=== PATIENT | female | born 1960 | race Caucasian/White ===

== ENCOUNTER 2018-01-16 11:39 | Emergency (ER) | payer BC ==
[2018-01-16] MEDS ORDERED: Ketorolac INJ* 30 MG/ML 1 ML VIAL IV ONE (12:10)
[2018-01-16] MEDS ORDERED: NS 0.9% 1000 ML* 1,000 ML IV ONE (12:10)
[2018-01-16 13:02] LABS: ABS Basophils 0 10^3/ul (0-0.2); ABS Eosinophils 0.1 10^3/ul (0-0.6); ABS Lymphocytes 1.7 10^3/ul (1.0-4.8); ABS Monocytes 0.3 10^3/ul (0-0.8); ABS Neutrophils 3.2 10^3/ul (1.5-7.7); ABS Nucleated RBC 0 10^3/ul; Eosinophil % 1.4 % (0-6); Hematocrit 36 % (35-47); Hemoglobin 12.3 g/dl (12.0-16.0); Lymphocyte % 31.8 % (25-47); Mean Corpuscular HGB Conc 34 g/dl (31-36); Mean Corpuscular Hemoglobin 33 pg (27-31); Mean Corpuscular Volume 97 fL (80-97); Mean Platelet Volume 8.9 um3 (7.4-10.4); Nucleated Red Blood Cells % 0; Platelet Count 190 10^3/ul (150-450); Red Blood Count 3.71 10^6/ul (4.00-5.40); Red Cell Distribution Width 13 % (10.5-15); White Blood Count 5.2 10^3/ul (3.5-10.8)
--- NOTE | 2018-01-16 13:02 | RAD ---
INDICATION: Headaches COMPARISON: September 17, 2011 TECHNIQUE: An AP seated portable view obtained at 1239 hours is submitted. FINDINGS: Bones/Soft Tissues: There are no acute bony findings. Cardiomediastinal: The cardiomediastinal silhouette is normal. Lungs: There are no infiltrates. Pleura: There are no pleural effusions. Other: None IMPRESSION: NO ACTIVE DISEASE.
[2018-01-16 13:22] LABS: Urine Appearance Clear; Urine Blood Negative (Negative); Urine Color Yellow; Urine Ketones Negative (Negative); Urine Protein Negative (Negative); Urine Urobilinogen Negative (Negative)
[2018-01-16 13:29] LABS: EGFR Non-African American 109.3 (>60)
[2018-01-16] MEDS ORDERED: oxyCODONE TAB* 5 MG TAB PO ONE (14:10)
[2018-01-16 14:27] VITALS: BP 132/76
--- NOTE | 2018-01-19 10:34 | ED ---
Arnaud Parsons Angela, scribed for Dg Kingsley MD on 01/16/18 at 1205 . Complex/Multi-Sys Presentation - HPI Summary HPI Summary: This pt is a 57 y/o female presenting to [facility] c/o generalized weakness and pain to extremities for the past 2.5 weeks. Pt additionally reports numbness and tingling in LE, headache, blue hands. She states her symptoms have been progressively worsening for the past couple of weeks. Denies chest pain, SOB, fever. She states she recently started Crestor (prescribed by Dr. Jang) for high cholesterol about 6 weeks ago. Pt notes her symptoms began 1 month after she started this medication. She called Dr. Jang today and advised her to come to the ED. PMHx includes dyslipidemia, COPD. Pt has chronic pain and takes medications for this. Pt has been referred to the pain clinic but has not seen them yet. She is a current tobacco smoker. - History Of Current Complaint Chief Complaint: EDGeneral Time Seen by Provider: 01/16/18 11:59 Hx Obtained From: Patient Onset/Duration: Lasting Weeks, Still Present Timing: Weeks Severity Currently: Moderate Location: Pain At: - head and extremities Aggravating Factor(s): nothing Alleviating Factor(s): nothing Associated Signs And Symptoms: Positive: Weakness, Headache, Other - POS: numbness and tingling in LE, blueish hands.. Negative: SOB, Chest Pain, Fever - Allergies/Home Medications Allergies/Adverse Reactions: Allergies Allergy/AdvReac Type Severity Reaction Status Date / Time Iodinated Contrast- Oral and AdvReac Severe Vomiting Verified 01/16/18 11:49 IV Dye Penicillins AdvReac Severe Vomiting Verified 01/16/18 11:49 codeine AdvReac Vomiting Verified 01/16/18 11:49 PMH/Surg Hx/FS Hx/Imm Hx Endocrine/Hematology History: Denies: Hx Diabetes Cardiovascular History: Reports: Hx Angina, Hx Hypercholesterolemia, Hx Hypertension, Hx Valvular Heart Disease - mitral valve prolapse Denies: Hx Coronary Artery Disease, Hx Myocardial Infarction Respiratory History: Reports: Hx Asthma, Hx Chronic Obstructive Pulmonary Disease (COPD) History: Reports: Other Problems/Disorders - left kidney infarct Neurological History: Reports: Other Neuro Impairments/Disorders - piriformis syndrome Psychiatric History: Reports: Hx Anxiety, Hx Depression Infectious Disease History: No Infectious Disease History: Denies: Traveled Outside the [place] in Last 30 Days - Family History Known Family History: Positive: Cardiac Disease - Mother: [place] at age 36, Hypertension - father, Diabetes - father Family History: Mother: breast CA. Father: CA - Social History Alcohol Use: Occasionally Substance Use Type: Reports: None Smoking Status (MU): Light Every Day Tobacco Smoker Type: Cigarettes Amount Used/How Often: 1 pack/week Length of Time of Smoking/Using Tobacco: 47 years Have You Smoked in the Last Year: Yes Review of Systems Negative: Fever Negative: Chest Pain Negative: Shortness Of Breath Musculoskeletal: Other - pain in all extremities Skin: Other - blue color in hands Positive: Headache, Weakness, Paresthesia, Numbness All Other Systems Reviewed And Are Negative: Yes Physical Exam - Summary Physical Exam Summary: VITAL SIGNS: Reviewed. GENERAL: Patient is a well-developed and nourished female who is lying comfortable in the stretcher. Patient is not in any acute respiratory distress. HEAD AND FACE: No signs of trauma. No ecchymosis, hematomas or skull depressions. No sinus tenderness. EYES: PERRLA, EOMI x 2, No injected conjunctiva, no nystagmus. EARS: Hearing grossly intact. Ear canals and tympanic membranes are within normal limits. MOUTH: Oropharynx within normal limits. NECK: Supple, trachea is midline, no adenopathy, no JVD, no carotid bruit, no c- spine tenderness, neck with full ROM. CHEST: Symmetric, no tenderness at palpation LUNGS: Clear to auscultation bilaterally. No wheezing or crackles. CVS: Regular rate and rhythm, S1 and S2 present, no murmurs or gallops appreciated. ABDOMEN: Soft, non-tender. No signs of distention. No rebound no guarding, and no masses palpated. Bowel sounds are normal. EXTREMITIES: FROM in all major joints, no edema, no cyanosis or clubbing. NEURO: Alert and oriented x 3. No acute neurological deficits. Speech is normal and follows commands. SKIN: Dry and warm Triage Information Reviewed: Yes Vital Signs On Initial Exam: Initial Vitals Temp Pulse Resp BP Pulse Ox 99.6 F 114 16 134/74 97 01/16/18 11:42 01/16/18 11:42 01/16/18 11:42 01/16/18 11:42 01/16/18 11:42 Vital Signs Reviewed: Yes Diagnostics - Vital Signs Vital Signs Temp Pulse Resp BP Pulse Ox 01/16/18 11:42 99.6 F 114 16 134/74 97 - Laboratory Lab Results: Lab Results 01/16/18 01/16/18 01/16/18 Range/Units 12:47 12:47 12:47 WBC 5.2 (3.5-10.8) 10^3/ul RBC 3.71 L (4.00-5.40) 10^6/ul Hgb 12.3 (12.0-16.0) g/dl Hct 36 (35-47) % MCV 97 (80-97) fL MCH 33 H (27-31) pg MCHC 34 (31-36) g/dl RDW 13 (10.5-15) % Plt Count 190 (150-450) 10^3/ul MPV 8.9 (7.4-10.4) um3 Neut % (Auto) 60.6 (38-83) % Lymph % (Auto) 31.8 (25-47) % [place] % (Auto) 5.5 (0-7) % Eos % (Auto) 1.4 (0-6) % Baso % (Auto) 0.7 (0-2) % Absolute Neuts (auto) 3.2 (1.5-7.7) 10^3/ul Absolute Lymphs (auto) 1.7 (1.0-4.8) 10^3/ul Absolute Monos (auto) 0.3 (0-0.8) 10^3/ul Absolute Eos (auto) 0.1 (0-0.6) 10^3/ul Absolute Basos (auto) 0 (0-0.2) 10^3/ul Absolute Nucleated RBC 0 10^3/ul Nucleated RBC % 0 Sodium 139 (135-145) mmol/L Potassium 3.9 (3.5-5.0) mmol/L Chloride 110 (101-111) mmol/L Carbon Dioxide 22 (22-32) mmol/L Anion Gap 7 (2-11) mmol/L BUN 10 (6-24) mg/dL Creatinine 0.57 (0.51-0.95) mg/dL Est GFR ( Amer) 140.6 (>60) Est GFR (Non-Af Amer) 109.3 (>60) BUN/Creatinine Ratio 17.5 (8-20) Glucose 99 (70-100) mg/dL Calcium 9.2 (8.6-10.3) mg/dL Magnesium 2.0 (1.9-2.7) mg/dL Total Bilirubin 0.30 (0.2-1.0) mg/dL AST 16 (13-39) U/L ALT 9 (7-52) U/L Alkaline Phosphatase 78 (34-104) U/L Total Creatine Kinase 55 (10-223) U/L Total Protein 6.5 (6.4-8.9) g/dL Albumin 3.9 (3.2-5.2) g/dL Globulin 2.6 (2-4) g/dL Albumin/Globulin Ratio 1.5 (1-3) TSH 1.59 (0.34-5.60) mcIU/mL Urine Color Yellow Urine Appearance Clear Urine pH 6.0 (5-9) Ur Specific [place] 1.010 (1.010-1.030) Urine Protein Negative (Negative) Urine Ketones Negative (Negative) Urine Blood Negative (Negative) Urine Nitrate Negative (Negative) Urine Bilirubin Negative (Negative) Urine Urobilinogen Negative (Negative) Ur Leukocyte Esterase Trace A (Negative) Urine WBC (Auto) Trace(0-5/hpf) (Absent) Urine RBC (Auto) 1+(3-5/hpf) A (Absent) Ur Squamous Epith Cells Present A (Absent) Urine Bacteria Absent (Absent) Urine Glucose Negative (Negative) Result Diagrams: 01/16/18 12:47 01/16/18 12:47 Lab Statement: Any lab studies that have been ordered have been reviewed, and results considered in the medical decision making process. - Radiology Chest XR Xray Interpretation: No Acute Changes - IMPRESSION: No active disease. Dr. Kingsley has reviewed this radiology report. Radiology Interpretation Completed By: Radiologist - EKG 13:12 Cardiac Rate: NL - at 71 bpm EKG Rhythm: Sinus Rhythm EKG Interpretation: No ST elevations Re-Evaluation - Re-Evaluation First Eval Re-Evaluation Time: 13:55 Change: Improved Comment: I reviewed the lab and imaging results with the pt. She will be discharged home with follow up from PCP. Complex Multi-Symp Course/Dx Assessment/Plan: Pt is a 57 y/o female, currently on Crestor for the past 6 weeks, who presents with generalized weakness and pain to extremities for the past 2.5 weeks. Pt additionally reports numbness and tingling in LE, headache, blue hands. She states her symptoms have been progressively worsening for the past couple of weeks. Denies chest pain, SOB, fever. Initially the patient was placed on a senior licensing manager, IV access was obtained, and the patient was started and an IV fluids. She was also given Toradol for the pain. Blood test results without any significant abnormality. Urinalysis is negative for UTI. EKG: Normal sinus rhythm at without any ST elevations. Chest x-ray impression : No acute Pulmonary disease. In the ED course the patient was feeling better. The patient was hydrated and she has no other symptoms. The patient thinks that the symptoms are secondary to the Crestor new medication. However she has been taken his medication for almost 6 weeks. Therefore she was recommended to follow with the primary care physician. I discussed all the findings and test results with the patient. Patient was instructed to return to the emergency room immediately if any of the symptoms return or worsens. Plan of care was discussed with the patient and understands and agrees. All questions were answered at patient satisfaction. There were no further complaints or concerns. Lung exam before discharge: CTA B/L. Good air exchange. No wheezing or crackles heard. CVS: S1 and S2 present. No murmurs appreciated. Patient is alert and oriented x 3. Patient is hemodynamically stable. Patient will be discharged home with follow up PCP in the next 2-3 days - Diagnoses Provider Diagnoses: Musculoskeletal pain, Muscle pain Discharge - Sign-Out/Discharge Documenting (check all that apply): Discharge/Admit/Transfer - Discharge - Discharge Plan Condition: Stable Disposition: HOME Patient Education Materials: Musculoskeletal Pain (ED) Referrals: Madalyn Gonsales [Primary Care Provider] - 3 Days Additional Instructions: Please follow up with your primary care provider. RETURN TO THE ED FOR ANY NEW OR WORSENING SYMPTOMS. - Billing Disposition and Condition Condition: STABLE Disposition: Home The documentation as recorded by the Arnaud gupta Angela accurately reflects the service I personally performed and the decisions made by me, Dg Kingsley MD.
== END 2018-01-16 14:25 | disposition home or self-care (01) ==
LOC: ED 11:39
DX: M79.1 Myalgia (principal); R20.0 Anesthesia of skin; R20.2 Paresthesia of skin; E78.5 Hyperlipidemia, unspecified; J44.9 Chronic obstructive pulmonary disease, unspecified; G89.29 Other chronic pain; F17.210 Nicotine dependence, cigarettes, uncomplicated; Z79.899 Other long term (current) drug therapy; Z82.49 Family history of ischemic heart disease and other diseases of the circulatory system; Z88.5 Allergy status to narcotic agent; Z88.0 Allergy status to penicillin; Z91.041 Radiographic dye allergy status; Z86.79 Personal history of other diseases of the circulatory system
CPT/HCPCS: 36415; 71045; 80053; 81003; 81015; 82550; 83735; 84443; 85025; 87086; 93005; 96374; 99282; A9270-GY; J1885

== ENCOUNTER 2018-01-18 18:46 | Emergency (ER) | payer BC ==
[2018-01-18] MEDS ORDERED: NS 0.9% 1000 ML* 1,000 ML IV ONE (19:26)
--- NOTE | 2018-01-18 20:08 | RAD ---
HISTORY: Chest pain COMPARISONS: January 16, 2018 VIEWS: 1: frontal portable view of the chest at 7:35 PM FINDINGS: LINES AND TUBES: None. CARDIOMEDIASTINAL SILHOUETTE: The cardiomediastinal silhouette is normal for portable technique. PLEURA: The costophrenic angles are sharp. No pleural abnormalities are noted. LUNG PARENCHYMA: The lungs are clear. ABDOMEN: The upper abdomen is clear. There is no subphrenic gas. BONES AND SOFT TISSUES: No bone or soft tissue abnormalities are noted. IMPRESSION: NO ACTIVE CARDIOPULMONARY DISEASE.
[2018-01-18 20:36] LABS: ABS Basophils 0 10^3/ul (0-0.2); ABS Eosinophils 0.2 10^3/ul (0-0.6); ABS Lymphocytes 2.5 10^3/ul (1.0-4.8); ABS Monocytes 0.4 10^3/ul (0-0.8); ABS Neutrophils 6.3 10^3/ul (1.5-7.7); ABS Nucleated RBC 0 10^3/ul; Eosinophil % 1.7 % (0-6); Hematocrit 32 % (35-47); Hemoglobin 11.1 g/dl (12.0-16.0); Lymphocyte % 26.1 % (25-47); Mean Corpuscular HGB Conc 35 g/dl (31-36); Mean Corpuscular Hemoglobin 34 pg (27-31); Mean Corpuscular Volume 98 fL (80-97); Mean Platelet Volume 8.7 um3 (7.4-10.4); Nucleated Red Blood Cells % 0; Platelet Count 176 10^3/ul (150-450); Red Blood Count 3.28 10^6/ul (4.00-5.40); Red Cell Distribution Width 13 % (10.5-15); White Blood Count 9.4 10^3/ul (3.5-10.8)
[2018-01-18 20:49] LABS: INR 0.96 (0.77-1.02)
[2018-01-18 20:59] LABS: EGFR Non-African American 93.6 (>60)
[2018-01-18] MEDS ORDERED: oxyCODONE TAB* 5 MG TAB PO ONE (21:44)
[2018-01-18 22:00] VITALS: BP 107/66
--- NOTE | 2018-01-18 23:45 | ED ---
Mis Parsons Gabriel, scribed for Bryant Zaldivar MD on 01/18/18 at 1917 . HPI Chest Pain - HPI Summary HPI Summary: This patient is a 58 year old F BIBA to [facility] c/o chest pain and chest pressure for the last two weeks. The patient rates the pain 6/10 in severity. Patient reports SOB, GORDON, and palpitations. Pt began taking crestor a month ago and believes this is contributing to her sx, she looked at side effects on the internet and stopped taking it 3 days ago. She states she has cyanotic bilateral hands, paresthesia in all 4 extremities, weakness, trouble ambulating , chills, tremors, and low grade fever. Patient denies tick bites. She expresses concern for her GORDON and states she cannot walk within her house or speaking without becoming very SOB. She states she has not seen her PCP for any of these issues but has an appointment with her bindery supervisor Dr. Jang this week. Today she reports being at the pharmacy when an employee suggested she come her because she may have endocarditis. Pt states she was told not to take NSAIDs by her bindery supervisor because her blood pressure. Hx of CRSD and took Percocet at 1725 and 325 [employer]. Everyday smoker. Takes Effexor and Klonopin daily. - History of Current Complaint Chief Complaint: EDChestPainROMI Time Seen by Provider: 01/18/18 19:11 Hx Obtained From: Patient Onset/Duration: Still Present Timing: Constant, Lasting Weeks Initial Severity: Moderate Current Severity: Moderate Pain Intensity: 6 Pain Scale Used: 0-10 Numeric Chest Pain Radiates: No Character: Pressure/Squeezing Associated Signs and Symptoms: Positive: Chest Pain, Weakness, Fever, Chills - Allergy/Home Medications Allergies/Adverse Reactions: Allergies Allergy/AdvReac Type Severity Reaction Status Date / Time Iodinated Contrast- Oral and AdvReac Severe Vomiting Verified 01/16/18 11:49 IV Dye Penicillins AdvReac Severe Vomiting Verified 01/16/18 11:49 codeine AdvReac Vomiting Verified 01/16/18 11:49 Home Medications: Home Medications Cyanocobalamin (Vitamin B-12) [Vitamin B-12] 1,000 mcg PO DAILY 01/18/18 [ History Confirmed 01/18/18] Rosuvastatin Calcium 5 mg PO DAILY 01/18/18 [History Confirmed 01/18/18] Topiramate 50 mg PO BID 01/18/18 [History Confirmed 01/18/18] PMH/Surg Hx/FS Hx/Imm Hx Endocrine/Hematology History: Denies: Hx Diabetes Cardiovascular History: Reports: Hx Angina, Hx Hypercholesterolemia, Hx Valvular Heart Disease Denies: Hx Coronary Artery Disease, Hx Hypertension, Hx Myocardial Infarction Respiratory History: Reports: Hx Asthma, Hx Chronic Obstructive Pulmonary Disease (COPD) GI History: Denies: Hx Crohn's Disease, Hx Diverticulosis - Immunization History Immunizations Up to Date: Yes Infectious Disease History: No Infectious Disease History: Denies: Traveled Outside the [place] in Last 30 Days - Family History Known Family History: Negative: Seizure Disorder, Blood Disorder - Social History Alcohol Use: Occasionally Substance Use Type: Reports: None Smoking Status (MU): Light Every Day Tobacco Smoker Type: Cigarettes Amount Used/How Often: 1 pack/week Length of Time of Smoking/Using Tobacco: 47 years Have You Smoked in the Last Year: Yes Review of Systems Positive: Fever, Chills, Other - tremors Positive: Chest Pain Positive: Shortness Of Breath, Other - GORDON Positive: Other - cyanotic bilateral hands Neurological: Other - trouble ambulating Positive: Weakness, Paresthesia All Other Systems Reviewed And Are Negative: Yes Physical Exam - Summary Physical Exam Summary: Appearance: Well appearing, no pain distress Skin: warm, dry, reflects adequate perfusion, no color changes in the hands or feet Head/face: normal Eyes: EOMI, JENNIFER ENT: normal Neck: supple, non-tender Respiratory: CTA, breath sounds present Cardiovascular: RRR, pulses symmetrical, no murmur Abdomen: non-tender, soft Bowel Sounds: present Musculoskeletal: normal, strength/ROM intact, there is no swelling in extremities Neuro: normal, sensory motor intact, A&Ox3 Triage Information Reviewed: Yes Vital Signs On Initial Exam: Initial Vitals Pulse Resp BP Pulse Ox 88 20 144/78 97 01/18/18 18:53 01/18/18 18:53 01/18/18 18:53 01/18/18 18:53 Vital Signs Reviewed: Yes Diagnostics - Vital Signs Vital Signs Temp Pulse Resp BP Pulse Ox 01/18/18 19:01 84 15 97 01/18/18 19:00 99.6 F 95 22 144/78 98 01/18/18 18:53 88 20 144/78 97 - Laboratory Lab Results: Lab Results 01/18/18 01/18/18 01/18/18 Range/Units 20:24 20:24 20:24 WBC 9.4 (3.5-10.8) 10^3/ul RBC 3.28 L (4.00-5.40) 10^6/ul Hgb 11.1 L (12.0-16.0) g/dl Hct 32 L (35-47) % MCV 98 H (80-97) fL MCH 34 H (27-31) pg MCHC 35 (31-36) g/dl RDW 13 (10.5-15) % Plt Count 176 (150-450) 10^3/ul MPV 8.7 (7.4-10.4) um3 Neut % (Auto) 67.1 (38-83) % Lymph % (Auto) 26.1 (25-47) % [place] % (Auto) 4.7 (0-7) % Eos % (Auto) 1.7 (0-6) % Baso % (Auto) 0.4 (0-2) % Absolute Neuts (auto) 6.3 (1.5-7.7) 10^3/ul Absolute Lymphs (auto) 2.5 (1.0-4.8) 10^3/ul Absolute Monos (auto) 0.4 (0-0.8) 10^3/ul Absolute Eos (auto) 0.2 (0-0.6) 10^3/ul Absolute Basos (auto) 0 (0-0.2) 10^3/ul Absolute Nucleated RBC 0 10^3/ul Nucleated RBC % 0 INR (Anticoag Therapy) 0.96 (0.77-1.02) D-Dimer, Quantitative < 200 (Less Than 230) ng/mL Sodium 139 (135-145) mmol/L Potassium 3.5 (3.5-5.0) mmol/L Chloride 112 H (101-111) mmol/L Carbon Dioxide 22 (22-32) mmol/L Anion Gap 5 (2-11) mmol/L BUN 13 (6-24) mg/dL Creatinine 0.65 (0.51-0.95) mg/dL Est GFR ( Amer) 120.4 (>60) Est GFR (Non-Af Amer) 93.6 (>60) BUN/Creatinine Ratio 20.0 (8-20) Glucose 95 (70-100) mg/dL Lactic Acid (0.5-2.0) mmol/L Calcium 8.7 (8.6-10.3) mg/dL Phosphorus 3.6 (2.5-5.0) mg/dL Magnesium 1.8 L (1.9-2.7) mg/dL Total Bilirubin 0.20 (0.2-1.0) mg/dL AST 16 (13-39) U/L ALT 12 (7-52) U/L Alkaline Phosphatase 89 (34-104) U/L Troponin I 0.00 (<0.04) ng/mL C-Reactive Protein 10.12 H (< 5.00) mg/L B-Natriuretic Peptide ( - 100) pg/mL Total Protein 5.7 L (6.4-8.9) g/dL Albumin 3.5 (3.2-5.2) g/dL Globulin 2.2 (2-4) g/dL Albumin/Globulin Ratio 1.6 (1-3) 01/18/18 01/18/18 01/18/18 Range/Units 20:24 20:24 20:24 WBC (3.5-10.8) 10^3/ul RBC (4.00-5.40) 10^6/ul Hgb (12.0-16.0) g/dl Hct (35-47) % MCV (80-97) fL MCH (27-31) pg MCHC (31-36) g/dl RDW (10.5-15) % Plt Count (150-450) 10^3/ul MPV (7.4-10.4) um3 Neut % (Auto) (38-83) % Lymph % (Auto) (25-47) % [place] % (Auto) (0-7) % Eos % (Auto) (0-6) % Baso % (Auto) (0-2) % Absolute Neuts (auto) (1.5-7.7) 10^3/ul Absolute Lymphs (auto) (1.0-4.8) 10^3/ul Absolute Monos (auto) (0-0.8) 10^3/ul Absolute Eos (auto) (0-0.6) 10^3/ul Absolute Basos (auto) (0-0.2) 10^3/ul Absolute Nucleated RBC 10^3/ul Nucleated RBC % INR (Anticoag Therapy) (0.77-1.02) D-Dimer, Quantitative (Less Than 230) ng/mL Sodium (135-145) mmol/L Potassium (3.5-5.0) mmol/L Chloride (101-111) mmol/L Carbon Dioxide (22-32) mmol/L Anion Gap (2-11) mmol/L BUN (6-24) mg/dL Creatinine (0.51-0.95) mg/dL Est GFR ( Amer) (>60) Est GFR (Non-Af Amer) (>60) BUN/Creatinine Ratio (8-20) Glucose (70-100) mg/dL Lactic Acid 0.5 (0.5-2.0) mmol/L Calcium (8.6-10.3) mg/dL Phosphorus (2.5-5.0) mg/dL Magnesium (1.9-2.7) mg/dL Total Bilirubin (0.2-1.0) mg/dL AST (13-39) U/L ALT (7-52) U/L Alkaline Phosphatase (34-104) U/L Troponin I 0.01 (<0.04) ng/mL C-Reactive Protein (< 5.00) mg/L B-Natriuretic Peptide 60 ( - 100) pg/mL Total Protein (6.4-8.9) g/dL Albumin (3.2-5.2) g/dL Globulin (2-4) g/dL Albumin/Globulin Ratio (1-3) Result Diagrams: 01/18/18 20:24 01/18/18 20:24 Lab Statement: Any lab studies that have been ordered have been reviewed, and results considered in the medical decision making process. - Radiology CXR Radiology Interpretation Completed By: Radiologist - NO ACTIVE CARDIOPULMONARY DISEASE. ED physician has reviewed this radiology report. - EKG 1800 Cardiac Rate: NL EKG Rhythm: Sinus Rhythm - at 81 BPM Ectopy: PVCs - one single EKG Interpretation: nml axis, nml intervals, nml ST Re-Evaluation - Re-Evaluation First Eval Re-Evaluation Time: 21:10 Change: Unchanged Comment: I discussed all test results and d/c with the patient. Chest Pain Course/Dx - Course Course Of Treatment: Patient with her second ER visit in 2 days. She has a history of complex regional pain syndrome and is complaining of pain diffusely as well as some shortness of breath and constant tightness in her chest. Troponin, d-dimer are not elevated. EKG is normal. She is very comfortable appearing. She took oxycodone just prior to coming. Her white blood cell count is not elevated and her CRP is only mildly elevated. She's been having these symptoms for weeks. Blood cultures were drawn as she is concerned about endocarditis. She has no major or minor rios criteria. Titers for Lyme disease were also drawn given her widespread, vague symptoms. She is encouraged to call her physician first thing in the morning for follow-up and will be called with positive blood culture or Lyme disease testing. Magnesium was low and will be replaced. - Chest Pain Differential Diagnosis/HQI/PQRI: Acute CT, Chest Wall, Lower Respiratory Infection, Pulmonary Embolism, Other: - Lyme disease, exacerbation of chronic pain - Diagnoses Provider Diagnoses: Chronic pain syndrome, Malaise, Myalgia, Hypomagnesemia Discharge - Sign-Out/Discharge Documenting (check all that apply): Discharge/Admit/Transfer - Discharge Plan Condition: Stable Disposition: HOME Prescriptions: Magnesium Oxide TAB* [MagOx 400 TAB*] 400 mg PO DAILY #20 tab Patient Education Materials: Magnesium (By mouth), Musculoskeletal Pain (ED) Referrals: Madalyn Gonsales [Primary Care Provider] - Additional Instructions: Blood cultures and Lyme disease testing will take several days to return. We will call you with a positive result. Call your doctor first thing in the morning to follow-up. He should also follow-up with her bindery supervisor. Return with fevers, new symptoms, worsening, or other concerns as discussed. Discontinue Crestor medication. - Billing Disposition and Condition Condition: STABLE Disposition: Home The documentation as recorded by the Mis gupta Gabriel accurately reflects the service I personally performed and the decisions made by me, Bryant Zaldivar MD.
[2018-01-20 18:42] LABS: B garinii/B afzelii PCR Negative (Negative)
== END 2018-01-18 22:01 | disposition home or self-care (01) ==
LOC: ED 18:46
DX: G89.4 Chronic pain syndrome (principal); R53.81 Other malaise; M79.1 Myalgia; E83.42 Hypomagnesemia; R07.89 Other chest pain; E78.00 Pure hypercholesterolemia, unspecified; F17.210 Nicotine dependence, cigarettes, uncomplicated; Z86.79 Personal history of other diseases of the circulatory system; Z88.0 Allergy status to penicillin; Z88.5 Allergy status to narcotic agent; Z91.041 Radiographic dye allergy status
CPT/HCPCS: 36415; 71045; 80053; 83605; 83735; 83880; 84100; 84484; 85025; 85379; 85610; 86140; 87040; 87476; 87798; 96360; 96361; 99283; A9270-GY

== ENCOUNTER → 2019-02-17 10:04 | Day surgery (SDC) | payer BC ==
--- NOTE | 2019-02-10 17:05 | HP ---
PREOPERATIVE HISTORY AND PHYSICAL: DATE OF ADMISSION/SURGERY: 02/17/19 DATE OF OFFICE VISIT: 02/09/19 ATTENDING SURGEON: Sameera Guillaume MD.* (DICTATED BY GRETCHEN MACK) PROCEDURES: Right shoulder arthroscopic decompression, debridement, and possible arthroscopic rotator cuff repair. CHIEF COMPLAINT: Right shoulder. HISTORY OF PRESENT ILLNESS: Latonia is a 59-year-old female who presents to the clinic with right shoulder pain due to impingement. She has failed conservative measures and therefore, agreed to undergo a right shoulder arthroscopic decompression, debridement, and possible rotator cuff repair with Dr. Guillaume on 02/17/19. PAST MEDICAL HISTORY: 1. Mitral valve prolapse. 2. Asthma. 3. Hypercholesterolemia. 4. Heart murmur. 5. Anxiety. 6. Decompression. 7. Raynaud's. 8. Scleroderma. 9. COPD. 10. Arthritis. 11. History of kidney infarct. 12. CRPS. 13. Autoimmune connective tissue disorder. PAST SURGICAL HISTORY: 1. . 2. Tubal ligation. 3. Breast biopsy x2. 4. Tonsillectomy. 5. Vocal cord polyp removed. 6. Excision of the mastoid subgranular gland. 7. Right hip release of the piriformis. 8. Right wrist surgery. The patient denies prior complications with anesthesia. MEDICATIONS: 1. Nitro-Bid 2% apply small amounts to the web of the digits as needed for Raynaud's. 2. Bacitracin 500 units per gram, apply twice a day to the fingers as needed for infection. 3. Potassium chloride 20 mEq 1 by mouth twice a day. 4. Hydroxychloroquine sulfate 200 mg 2 by mouth Friday, Friday, 1 tab rest of the week. 5. Topamax 50 mg 1 by mouth every morning. 6. Nitrostat 0.4 mg 1 by mouth as needed for chest pain. 7. Vitamin A once daily. 8. Klonopin 1 mg 1 by mouth 3 times a day as needed. 9. Effexor 75 mg 1 by mouth daily. 10. Temazepam 22.5 mg 1 cap every day at bedtime. 11. Vitamin D 50,000 units 1 cap by mouth 1 time a week. 12. Vitamin C 1 by mouth daily. 13. Ventolin HFA [address] puff 4 times a day as needed. 14. Magnesium oxide 400 mg 1 by mouth daily. 15. Cyclobenzaprine 5 mg 1 by mouth 3 times a day. 16. Percocet 10/325 one every 8 hours as needed. 17. Calcium 600 mg 1 by mouth daily. 18. Vitamin B12 at 1200 mcg daily. 19. Nicotine mini 2 mg use every 2 to 4 hours with nicotine craving. 20. Rosuvastatin 10 mg 1 by mouth every evening. ALLERGIES: CODEINE, AUGMENTIN, NEURONTIN, PENICILLIN, NORTRIPTYLINE, FENTANYL, AMOXICILLIN, AZITHROMYCIN, LYRICA, NSAIDS, IODINATED DIAGNOSTIC AGENTS, COLCHICINE, ENVIRONMENTAL ALLERGIES, GABAPENTIN, HYDROQUINIDINE, NIFEDIPINE, and MORPHINE. FAMILY HISTORY: Positive for cancer, RA, diabetes, hypertension, autoimmune disease. Denies family history of DVT or PE. SOCIAL HISTORY: She lives with her spouse. She is disabled. She smokes a couple of cigarettes a day. She denies alcohol consumption. She is right-hand dominant. REVIEW OF SYSTEMS: A 14-point review of systems was reviewed with the patient. Positive for current complaint, otherwise negative. Denies fevers, chills, chest pain, shortness of breath, history of bleeding disorder, history of DVT or PE. PHYSICAL EXAMINATION GENERAL: A 59-year-old well-developed, well-nourished female, in no acute distress. VITAL SIGNS: Height 64, weight 136. Pulse 98, blood pressure 118/68, respiratory rate 18, BMI 23.3. HEENT: Normocephalic, atraumatic. PERRLA. Throat: Clear. NECK: Supple. PULMONARY: Lungs are clear to auscultation bilaterally. No wheezing, rhonchi, or rales. CARDIO: Regular rate and rhythm. S1, S2. No murmurs, gallops, or rubs. No edema. ABDOMEN: Positive bowel sounds, soft, nontender. NEURO: Alert and oriented x3. Cranial nerves grossly intact. MUSCULOSKELETAL: Right upper extremity, skin is intact. No warmth or erythema. Forward flexion 130, abduction 110, external rotation to 20 with significant discomfort. +4/5 strength to supraspinatus testing with pain. Positive impingement, Speed, Boyle-Juanpablo, Harney. +2 radial pulse. Sensation intact to light touch distally. DIAGNOSTIC STUDIES: MRI revealed no evidence of acute fracture dislocation. No obvious adhesive capsulitis, signs of subacromial impingement , but no obvious turning of the rotator cuff. IMPRESSION: Right shoulder impingement. PLAN: The patient is scheduled to undergo a right shoulder arthroscopic decompression, debridement, and possible arthroscopic rotator cuff repair with Dr. Guillaume on 02/17/19. She will follow up in 10 to 14 days postop for followup and suture removal with Dr. Guillaume. Touch base with Dr. Alvares, her chronic pain doctor, who agreed that on the day of surgery, the patient should contact him and he will write for postop narcotics. GRETCHEN MACK [id number]/[facility] [place] #: [id number] MTDSandrine
[~2019-02-17 10:04] MED LIST: Acetaminophen TAB* 325 MG ONE; Acetaminophen TAB* 325 MG PO ONE; Buffered Lidocaine 1% SYRIN* 1 ML/SYRINGE INTRADERM ONE; Dexamethasone IV* 4 MG/ML 1 ML (4 MG) IV SLOW PU ONE; Dexamethasone IV* 4 MG/ML 1 ML (4 MG) ONE; DiMENhydriNATE IV* 50 MG/ML VIAL IV PUSH PRN; EPINEPHRINE 1 MG/ML 1 ML VIAL ONE; Famotidine TAB* 20 MG ONE; Famotidine TAB* 20 MG PO ONE; HYDROmorphone INJ1* 1 MG/ML SYRINGE IV PRN; Lactated Ringers 1000 ML Bag* 1,000 ML IV SCH; Lidocaine 1% MPF ** 5 ML VIAL ONE; Midazolam* 1 MG/ML 5 ML VIAL (5 MG) ONE; Naloxone* 0.4 MG/ML 1 ML VIAL IV PRN; Ondansetron INJ* 2 MG/ML VIAL ONE; Propofol* 10 MG/ML 20 ML BTL ONE; ROPIVACAINE 5 MG/ML 30 ML BTL (0.5%) ONE; Ropivacaine 0.2% * 2 MG/ML VIAL ONE; Vancomycin(*) 1,000 MG in NS 0.9% 250 ML* 250 ML IVPB ONE; fentaNYL* 50 MCG/ML 2 ML VIAL (100 MCG VIAL) IV PRN; fentaNYL* 50 MCG/ML 2 ML VIAL (100 MCG VIAL) ONE; methylPREDNISolone ACETATE 80* 80 MG/ML 1 ML VIAL ONE; oxyCODONE/Acetamin 5/325 MG* TAB PO PRN
[2019-02-17 16:02] VITALS: BP 114/66
--- NOTE | 2019-02-17 16:30 | OP ---
CC: Dr. Alvares, Pain [facility], [place]; [facility] * DATE OF OPERATION: 02/17/19 - [facility] DATE OF : 60 SURGEON: Sameera Guillaume MD. AUTOMATIC LATHE TENDER: GRETCHEN Banda. An assistant financial accountant was needed for the entirety of the case. ANESTHESIOLOGIST: Dr. Lancaster. ANESTHESIA: General with interscalene block. PRE-OP DIAGNOSIS: Right shoulder calcific tendinitis and impingement. POST-OP DIAGNOSIS: Right shoulder calcific tendinitis and impingement. OPERATIVE PROCEDURE: Right shoulder arthroscopy with: 1. Extensive glenohumeral debridement including biceps tenotomy. 2. Subacromial decompression with acromioplasty. 3. Subacromial injection with 80 mg of Depo-Medrol. COMPLICATIONS: None. ESTIMATED BLOOD LOSS: Minimal. INDICATIONS: Latonia Ricardo is a 59-year-old female, who has had persistent shoulder pain. She has failed conservative management. She has elected to proceed with surgical treatment. Risks and benefits were discussed at length and included, but are not limited to bleeding; infection; damage to nerves, vessels, surrounding structures; persistent pain; need for further surgery; scarring; stiffness; incomplete relief of symptoms; risks of anesthesia. The patient was cautioned and counseled that she may have persistent pain that may be refractory and that this may not take all of her symptoms away. She also is on the pain clinic for a different injury and would require pain clinic management. In discussion with Dr. Alvares, he stated that he will be happy to take care of the patient's postoperative pain as they are part of the pain clinic. DESCRIPTION OF PROCEDURE: The patient was greeted in the preoperative area by the attending surgeon. Correct extremity was marked and consent was confirmed. She underwent interscalene nerve block by the anesthesiologist, after which she was brought back to the operating suite where she was placed in the supine position on the operating table. She then underwent general anesthesia with LMA intubation, after which she was placed in the left lateral decubitus position. All bony prominences were padded. She was secured with a pegboard. The right arm was draped unsterile with 10 pounds of traction. Right shoulder was then prepped and draped in the usual sterile fashion beginning with chlorhexidine soap, scrub, and alcohol wipe, and a final prep with ChloraPrep. After appropriate surgical pause indicating side, site, procedure, and administration of antibiotics, the standard postero-lateral portal was made sharply with an 11-blade. Scope was introduced into the joint and the joint was examined. There was abundant synovitis that was apparent. The glenohumeral joint had grade 0 to 1 changes. The biceps had unstable fraying and tearing, SLAP type 2 tear with tendinosis as well as synovitis. The biceps tendon had abundant fraying and tearing; therefore, this was then tenotomized after the anterior cannula was placed. The shaver was used to debride back the anterior, posterior, superior labrum. The inferior recess was intact. There were no loose bodies that were present. The undersurface of the rotator cuff looked intact without any obvious partial-thickness tearing. Subscap was intact. After the intraarticular work was completed, attention was directed to the subacromial space. The lateral portal was made in an outside-in fashion. There was abundant synovitis that was very thick and friable. The shaver was used to debride back the thick tissue as well as the electrocautery device to maintain hemostasis. The rotator cuff was found to be intact without any tearing. The undersurface of the acromion had significant downward sloping acromion. Once the synovitis had been cleared out, the undersurface of the acromion was skeletonized using electrocautery device. The 4-0 oval marjan was used to do an acromioplasty to remove the large anterolateral spur. This allowed more room for the rotator cuff to move. The cuff was examined and found to be intact. Decision was made not to do any kind of repair for the cuff. Once this was complete and the synovectomy, bursectomy and all loose debris was removed, an 18-gauge needle was placed into the subacromial space under arthroscopic visualization. The wounds were then copiously irrigated. The portals were closed with 3-0 nylon. The subacromial space was injected with 80 mg of Depo-Medrol. Sterile dressings were applied. Cryo/Cuff and a regular sling were applied. She was awoken from anesthesia and transferred to the PACU in stable condition. POSTOPERATIVE PLAN: She will be nonweightbearing. She will not be discharged on any pain medications from this office. She will see her pain clinic doctor tomorrow for pain medication adjustment. She will ice and heat. DVT prophylaxis was considered, but deferred due to no previous personal or family history. She cannot take some NSAIDs due to some allergy and therefore we will not write for NSAIDs. [id number]/[facility] #: [id number] ARUNA
== END | disposition home or self-care (01) ==
LOC: OR 10:04
PROVIDERS: ATTEND Orthopaedic Surgery
DX: M75.41 Impingement syndrome of right shoulder (principal); M75.31 Calcific tendinitis of right shoulder; G89.18 Other acute postprocedural pain; R60.0 Localized edema; I73.9 Peripheral vascular disease, unspecified; E78.5 Hyperlipidemia, unspecified; F17.210 Nicotine dependence, cigarettes, uncomplicated; I31.3 Pericardial effusion (noninflammatory); I34.1 Nonrheumatic mitral (valve) prolapse; F41.8 Other specified anxiety disorders; M19.90 Unspecified osteoarthritis, unspecified site; I27.20 Pulmonary hypertension, unspecified; J44.9 Chronic obstructive pulmonary disease, unspecified
CPT/HCPCS: A9270-GY; J1040; J1100; J2250; J2405; J2704; J2795; J3010; J3370

== ENCOUNTER 2020-07-18 14:41 | Inpatient (IN) ==
[2020-07-18] MEDS ORDERED: Morphine 4 MG/ML VIAL (1 ml) IV ONE (17:45)
[2020-07-18 18:06] LABS: ABS Basophils 0.1 10^3/ul (0-0.2); ABS Eosinophils 0.5 10^3/ul (0-0.6); ABS Lymphocytes 1.3 10^3/ul (1.0-4.8); ABS Monocytes 0.6 10^3/ul (0-0.8); ABS Neutrophils 9.6 10^3/ul (1.5-7.7); Eosinophil % 4.1 %; Hematocrit 41 % (35-47); Hemoglobin 14.2 g/dL (12.0-16.0); Lymphocyte % 10.7 %; Mean Corpuscular HGB Conc 34 g/dL (31-36); Mean Corpuscular Hemoglobin 34 pg (27-31); Mean Corpuscular Volume 98 fL (80-97); Mean Platelet Volume 8.1 fL (7.4-10.4); Platelet Count 293 10^3/uL (150-450); Red Blood Count 4.21 10^6 /uL (3.70-4.87); Red Cell Distribution Width 12 % (10-15); White Blood Count 12.1 10^3/uL (3.5-10.8)
[2020-07-18] MEDS ORDERED: Ondansetron 4 mg VIAL 2 MG/ML 2 ml VIAL IV ONE (18:11)
[2020-07-18 18:12] LABS: Activated Partial Thrombo Time 38.7 seconds (26.0-38.0); INR 1.11 (0.82-1.09)
[2020-07-18 18:27] LABS: ALT 17 U/L (7-52); Albumin 3.9 g/dL (3.2-5.2); Albumin/Globulin Ratio 1.3 (1-3); Alkaline Phosphatase 172 U/L (34-104); BUN/Creatinine Ratio 29.6 (8-20); Blood Urea Nitrogen 16 mg/dL (6-24); CO2 Carbon Dioxide 26 mmol/L (22-32); Calcium 9.5 mg/dL (8.6-10.3); Chloride 102 mmol/L (101-111); EGFR African American 139.3 (>60); EGFR Non-African American 115.2 (>60); Globulin 3.1 g/dL (2-4); Glucose 103 mg/dL (70-100); Sodium 136 mmol/L (135-145)
[2020-07-18 18:44] LABS: Anion Gap 8 mmol/L (2-11); Troponin I 0.03 ng/mL (<0.03)
[2020-07-18] MEDS ORDERED: Iohexol 350 (CONTRAST) 500 ML MDV IV ONE (19:14)
[2020-07-18] MEDS ORDERED: Ondansetron 4 mg VIAL 2 MG/ML 2 ml VIAL IV PRN (20:32)
[2020-07-18] MEDS ORDERED: diPHENhydraMINE 25 mg TAB PO PRN (20:37)
[2020-07-18] MEDS ORDERED: Albuterol 2.5mg/3 ml (0.083%) NEB.SOLN INH PRN (20:56)
[2020-07-18 21:31] LABS: Troponin I 0.03 ng/mL (<0.03)
[2020-07-18] MEDS: Morphine 2 MG/ML SYRINGE IV PRN (21:36)
[2020-07-18 22:16] LABS: Potassium Redraw 4.2 mmol/L (3.5-5.0)
[2020-07-18 22:21] LABS: AST Redraw 15 U/L (13-39)
[2020-07-18] MEDS: Heparin 5000 UNITS/ML 1 mL VIAL SUBCUT SCH (22:48)
[2020-07-19] MEDS: Morphine 2 MG/ML SYRINGE IV PRN ×2 (03:18→10:00)
[2020-07-19 05:32] LABS: ABS Basophils 0.1 10^3/ul (0-0.2); ABS Eosinophils 0.6 10^3/ul (0-0.6); ABS Lymphocytes 1.9 10^3/ul (1.0-4.8); ABS Monocytes 0.6 10^3/ul (0-0.8); ABS Neutrophils 7.4 10^3/ul (1.5-7.7); Eosinophil % 5.8 %; Hematocrit 38 % (35-47); Mean Corpuscular HGB Conc 34 g/dL (31-36); Mean Corpuscular Hemoglobin 34 pg (27-31); Mean Corpuscular Volume 100 fL (80-97); Mean Platelet Volume 7.9 fL (7.4-10.4); Platelet Count 250 10^3/uL (150-450); Red Blood Count 3.85 10^6 /uL (3.70-4.87); Red Cell Distribution Width 13 % (10-15); White Blood Count 10.6 10^3/uL (3.5-10.8)
[2020-07-19 05:44] LABS: INR 1.14 (0.82-1.09)
[2020-07-19 05:49] LABS: BUN/Creatinine Ratio 30.6 (8-20); Calcium 9.3 mg/dL (8.6-10.3); EGFR African American 118.8 (>60); EGFR Non-African American 98.2 (>60); Potassium 4.1 mmol/L (3.5-5.0)
[2020-07-19] MEDS: Heparin 5000 UNITS/ML 1 mL VIAL SUBCUT SCH ×2 (05:56→14:31)
[2020-07-19] MEDS: oxyCODONE/Acetamin 5/325 mg TAB PO PRN ×2 (06:01→12:01)
[2020-07-19] MEDS ORDERED: Venlafaxine XR 75 mg PO SCH (09:00)
[2020-07-19] MEDS ORDERED: Senna TAB 8.6 mg TAB PO PRN (11:13)
[2020-07-19] MEDS ORDERED: Magnesium Hydroxide LIQ 30 ML UDC PO PRN (11:13)
[2020-07-19 17:32] VITALS: BP 119/64
== END 2020-07-19 16:06 | disposition home or self-care (01) | DRG 136 ==
LOC: ED 14:41 → MEDTELE 20:28
PROVIDERS: ADMIT Internal Medicine; ATTEND Internal Medicine

== ENCOUNTER 2020-07-21 17:40 | Inpatient (IN) ==
[2020-07-21] MEDS ORDERED: NS 0.9% 500 ml BAG 500 ML IV ONE (18:14)
[2020-07-21] MEDS ORDERED: Ondansetron 4 mg VIAL 2 MG/ML 2 ml VIAL IV ONE (18:30)
[2020-07-21] MEDS ORDERED: Morphine 4 MG/ML VIAL (1 ml) IV ONE (18:30)
[2020-07-21 18:54] LABS: ABS Basophils 0.1 10^3/ul (0-0.2); ABS Eosinophils 0.7 10^3/ul (0-0.6); ABS Lymphocytes 1.6 10^3/ul (1.0-4.8); ABS Monocytes 0.6 10^3/ul (0-0.8); Eosinophil % 6.7 %; Hematocrit 40 % (35-47); Hemoglobin 13.5 g/dL (12.0-16.0); Lymphocyte % 16.4 %; Mean Corpuscular HGB Conc 34 g/dL (31-36); Mean Corpuscular Hemoglobin 33 pg (27-31); Mean Corpuscular Volume 100 fL (80-97); Mean Platelet Volume 8.4 fL (7.4-10.4); Platelet Count 275 10^3/uL (150-450); Red Blood Count 4.03 10^6 /uL (3.70-4.87); Red Cell Distribution Width 12 % (10-15)
[2020-07-21 19:15] LABS: Albumin 3.6 g/dL (3.2-5.2); Albumin/Globulin Ratio 1.2 (1-3); Calcium 9.3 mg/dL (8.6-10.3); EGFR African American 123.4 (>60); Globulin 2.9 g/dL (2-4); Potassium 3.8 mmol/L (3.5-5.0); Total Bilirubin 0.2 mg/dL (0.2-1.0); Total Protein 6.5 g/dL (6.4-8.9)
[2020-07-21 19:16] LABS: Troponin I 0.01 ng/mL (<0.03)
[2020-07-21] MEDS ORDERED: Enoxaparin 40 MG/0.4 ML SYR SUBCUT SCH (23:00)
[2020-07-21] MEDS ORDERED: Albuterol HFA INHALER 8 gm MDI INH PRN (23:07)
[2020-07-21] MEDS ORDERED: diPHENhydraMINE 25 mg TAB PO PRN (23:07)
[2020-07-22 06:09] LABS: ABS Basophils 0.1 10^3/ul (0-0.2); ABS Eosinophils 0.7 10^3/ul (0-0.6); ABS Lymphocytes 1.5 10^3/ul (1.0-4.8); ABS Monocytes 0.4 10^3/ul (0-0.8); ABS Neutrophils 4.7 10^3/ul (1.5-7.7); Eosinophil % 9.1 %; Hematocrit 36 % (35-47); Hemoglobin 12.4 g/dL (12.0-16.0); Lymphocyte % 20.7 %; Mean Corpuscular HGB Conc 34 g/dL (31-36); Mean Corpuscular Hemoglobin 34 pg (27-31); Mean Corpuscular Volume 99 fL (80-97); Mean Platelet Volume 8.3 fL (7.4-10.4); Platelet Count 247 10^3/uL (150-450); Red Blood Count 3.66 10^6 /uL (3.70-4.87); Red Cell Distribution Width 12 % (10-15); White Blood Count 7.3 10^3/uL (3.5-10.8)
[2020-07-22 06:24] LABS: BUN/Creatinine Ratio 23.4 (8-20); Calcium 8.8 mg/dL (8.6-10.3); EGFR African American 163.6 (>60); EGFR Non-African American 135.2 (>60); Potassium 3.8 mmol/L (3.5-5.0)
[2020-07-22] MEDS: Venlafaxine XR 75 mg PO SCH (08:52)
[2020-07-22] MEDS ORDERED: Cholecalciferol (VIT D3) 1,000 unit TAB PO SCH (09:00)
[2020-07-22] MEDS ORDERED: Vancomycin 1,000 MG in NS 0.9% 250 ml 250 ML IVPB ONE (12:00)
[2020-07-22] MEDS: cefTRIAXone 1 gm/50 mL NS BAG 1 GM/50 ML BAG IVPB SCH (12:08)
[2020-07-22] MEDS: Lidocaine PATCH 5% PATCH TRANSDERM SCH (12:08)
[2020-07-22] MEDS ORDERED: Polyethylene Glycol 3350 17 GM PACKET PO PRN (13:41)
[2020-07-22] MEDS: Morphine ER 15 mg TAB ** extended release PO SCH (14:30)
[2020-07-22] MEDS: Senna TAB 8.6 mg TAB PO SCH ×3 (14:31→20:27)
[2020-07-22] MEDS ORDERED: Magnesium CITRATE LIQ 300 ML BTL PO PRN (15:47)
[2020-07-22] MEDS: Lidocaine Patch REMOVE PATCH PATCH OFF SCH (20:27)
[2020-07-23] MEDS: Morphine ER 15 mg TAB ** extended release PO SCH ×2 (02:05→14:31)
[2020-07-23] MEDS: Albuterol/Ipratropium NEB.SOL (2.5/0.5 MG) 3 ML NEB.SOLN INH PRN (08:01)
[2020-07-23 08:16] LABS: ABS Basophils 0.1 10^3/ul (0-0.2); ABS Eosinophils 0.7 10^3/ul (0-0.6); ABS Lymphocytes 1.2 10^3/ul (1.0-4.8); ABS Monocytes 0.5 10^3/ul (0-0.8); ABS Neutrophils 5.7 10^3/ul (1.5-7.7); Eosinophil % 8.4 %; Hematocrit 35 % (35-47); Hemoglobin 11.7 g/dL (12.0-16.0); Lymphocyte % 14.4 %; Mean Corpuscular HGB Conc 34 g/dL (31-36); Mean Corpuscular Hemoglobin 34 pg (27-31); Mean Corpuscular Volume 99 fL (80-97); Mean Platelet Volume 8.4 fL (7.4-10.4); Platelet Count 268 10^3/uL (150-450); Red Blood Count 3.48 10^6 /uL (3.70-4.87); Red Cell Distribution Width 12 % (10-15); White Blood Count 8.2 10^3/uL (3.5-10.8)
[2020-07-23 08:31] LABS: BUN/Creatinine Ratio 31.6 (8-20); Calcium 8.7 mg/dL (8.6-10.3); EGFR African American 130.9 (>60); EGFR Non-African American 108.2 (>60); Potassium 4.2 mmol/L (3.5-5.0)
[2020-07-23] MEDS: Lidocaine PATCH 5% PATCH TRANSDERM SCH ×2 (08:45→14:32)
[2020-07-23] MEDS: Cholecalciferol (VIT D3) 1,000 unit TAB PO SCH (08:46)
[2020-07-23] MEDS: Venlafaxine XR 75 mg PO SCH (08:46)
[2020-07-23] MEDS: Senna TAB 8.6 mg TAB PO SCH ×2 (08:46→21:35)
[2020-07-23] MEDS: cefTRIAXone 1 gm/50 mL NS BAG 1 GM/50 ML BAG IVPB SCH (11:07)
[2020-07-23] MEDS: Lidocaine Patch REMOVE PATCH PATCH OFF SCH (21:39)
[2020-07-24] MEDS: Morphine ER 15 mg TAB ** extended release PO SCH ×2 (02:11→20:31)
[2020-07-24 06:24] LABS: ABS Eosinophils 0.8 10^3/ul (0-0.6); ABS Lymphocytes 1.3 10^3/ul (1.0-4.8); ABS Monocytes 0.6 10^3/ul (0-0.8); ABS Neutrophils 5.9 10^3/ul (1.5-7.7); Eosinophil % 9.3 %; Hematocrit 34 % (35-47); Hemoglobin 11.5 g/dL (12.0-16.0); Lymphocyte % 14.5 %; Mean Corpuscular HGB Conc 33 g/dL (31-36); Mean Corpuscular Hemoglobin 33 pg (27-31); Mean Corpuscular Volume 99 fL (80-97); Mean Platelet Volume 8.8 fL (7.4-10.4); Platelet Count 282 10^3/uL (150-450); Red Blood Count 3.47 10^6 /uL (3.70-4.87); Red Cell Distribution Width 13 % (10-15); White Blood Count 8.6 10^3/uL (3.5-10.8)
[2020-07-24 06:29] LABS: INR 1.11 (0.82-1.09)
[2020-07-24 06:38] LABS: BUN/Creatinine Ratio 45.5 (8-20); Calcium 8.9 mg/dL (8.6-10.3); EGFR African American 110.5 (>60); EGFR Non-African American 91.4 (>60); Potassium 4.6 mmol/L (3.5-5.0)
[2020-07-24] MEDS: Nicotine PATCH 14 MG/24 HR PATCH TRANSDERM SCH (08:45)
[2020-07-24] MEDS: Cholecalciferol (VIT D3) 1,000 unit TAB PO SCH (08:46)
[2020-07-24] MEDS: Senna TAB 8.6 mg TAB PO SCH ×2 (08:46→20:33)
[2020-07-24] MEDS: Venlafaxine XR 75 mg PO SCH (08:48)
[2020-07-24] MEDS: Lidocaine PATCH 5% PATCH TRANSDERM SCH (09:26)
[2020-07-24] MEDS ORDERED: Morphine ER 15 mg TAB ** extended release PO ONE (10:48)
[2020-07-24] MEDS ORDERED: Morphine ER 30 mg TAB ** extended release PO SCH ×2 (10:48→21:00)
[2020-07-24] MEDS: Ondansetron ODT 4 mg TAB 4 MG TAB PO PRN (17:12)
[2020-07-24] MEDS ORDERED: Iohexol 300 (CONTRAST) 10 ML SDV IV ONE (18:33)
[2020-07-24] MEDS ORDERED: Magnesium CITRATE LIQ 300 ML BTL PO ONE (18:37)
[2020-07-24] MEDS ORDERED: Gadoteridol (CONTRAST) 279.3 MG/ML 10 ML IV ONE (19:40)
[2020-07-24] MEDS: Polyethylene Glycol 3350 17 GM PACKET PO SCH ×2 (20:32→20:44)
[2020-07-24] MEDS: Magnesium CITRATE LIQ 300 ML BTL PO SCH (20:33)
[2020-07-24] MEDS: Lidocaine Patch REMOVE PATCH PATCH OFF SCH (20:43)
[2020-07-25] MEDS: Ondansetron ODT 4 mg TAB 4 MG TAB PO PRN (02:41)
[2020-07-25 07:24] LABS: ABS Basophils 0.1 10^3/ul (0-0.2); ABS Eosinophils 0.1 10^3/ul (0-0.6); ABS Lymphocytes 1.4 10^3/ul (1.0-4.8); ABS Monocytes 0.6 10^3/ul (0-0.8); ABS Neutrophils 10.2 10^3/ul (1.5-7.7); Eosinophil % 0.8 %; Hematocrit 37 % (35-47); Hemoglobin 12.5 g/dL (12.0-16.0); Lymphocyte % 11.3 %; Mean Corpuscular HGB Conc 34 g/dL (31-36); Mean Corpuscular Hemoglobin 33 pg (27-31); Mean Corpuscular Volume 99 fL (80-97); Mean Platelet Volume 8.8 fL (7.4-10.4); Platelet Count 393 10^3/uL (150-450); Red Blood Count 3.76 10^6 /uL (3.70-4.87); Red Cell Distribution Width 12 % (10-15); White Blood Count 12.3 10^3/uL (3.5-10.8)
[2020-07-25 07:37] LABS: INR 1.18 (0.82-1.09)
[2020-07-25 07:45] LABS: BUN/Creatinine Ratio 45.2 (8-20); Calcium 9.7 mg/dL (8.6-10.3); EGFR African American 118.8 (>60); EGFR Non-African American 98.2 (>60); Potassium 4.9 mmol/L (3.5-5.0)
[2020-07-25] MEDS: Albuterol/Ipratropium NEB.SOL (2.5/0.5 MG) 3 ML NEB.SOLN INH PRN ×3 (08:31→22:59)
[2020-07-25] MEDS ORDERED: LORazepam 2 mg VIAL 1 ml IV PUSH PRN (08:33)
[2020-07-25] MEDS: Venlafaxine XR 75 mg PO SCH (08:33)
[2020-07-25] MEDS ORDERED: Lorazepam PYXIS KEY PRN (08:33)
[2020-07-25] MEDS: Senna TAB 8.6 mg TAB PO SCH ×2 (08:34→21:40)
[2020-07-25] MEDS: Cholecalciferol (VIT D3) 1,000 unit TAB PO SCH (08:34)
[2020-07-25] MEDS: Nicotine PATCH 14 MG/24 HR PATCH TRANSDERM SCH (08:39)
[2020-07-25] MEDS: Lidocaine PATCH 5% PATCH TRANSDERM SCH (08:39)
[2020-07-25] MEDS: Magnesium CITRATE LIQ 300 ML BTL PO SCH (08:54)
[2020-07-25] MEDS: Polyethylene Glycol 3350 17 GM PACKET PO SCH ×2 (08:54→21:40)
[2020-07-25] MEDS ORDERED: Venlafaxine XR 75 mg PO SCH (09:00)
[2020-07-25] MEDS: Morphine ER 15 mg TAB ** extended release PO SCH (09:08)
[2020-07-25] MEDS ORDERED: fentaNYL 100 mcg/2 ml 50 MCG/ML VIAL ONE (10:09)
[2020-07-25] MEDS: oxyCODONE/Acetamin 5/325 mg TAB PO PRN ×3 (13:23→21:39)
[2020-07-25] MEDS ORDERED: Enoxaparin 40 MG/0.4 ML SYR SUBCUT SCH (14:00)
[2020-07-25] MEDS ORDERED: Senna TAB 8.6 mg TAB PO PRN (18:24)
[2020-07-25] MEDS ORDERED: Magnesium Hydroxide LIQ 30 ML UDC PO PRN (18:24)
[2020-07-25] MEDS: Lidocaine Patch REMOVE PATCH PATCH OFF SCH (21:43)
[2020-07-26] MEDS: oxyCODONE/Acetamin 5/325 mg TAB PO PRN ×3 (02:53→11:16)
[2020-07-26] MEDS: Albuterol/Ipratropium NEB.SOL (2.5/0.5 MG) 3 ML NEB.SOLN INH PRN ×2 (04:32→10:06)
[2020-07-26 05:07] LABS: ABS Eosinophils 0.1 10^3/ul (0-0.6); ABS Lymphocytes 1.1 10^3/ul (1.0-4.8); ABS Monocytes 0.6 10^3/ul (0-0.8); ABS Neutrophils 8.7 10^3/ul (1.5-7.7); Eosinophil % 0.7 %; Hematocrit 34 % (35-47); Hemoglobin 11.8 g/dL (12.0-16.0); Lymphocyte % 10.4 %; Mean Corpuscular HGB Conc 34 g/dL (31-36); Mean Corpuscular Hemoglobin 34 pg (27-31); Mean Corpuscular Volume 99 fL (80-97); Platelet Count 330 10^3/uL (150-450); Red Blood Count 3.47 10^6 /uL (3.70-4.87); Red Cell Distribution Width 12 % (10-15); White Blood Count 10.5 10^3/uL (3.5-10.8)
[2020-07-26 05:31] LABS: Calcium 9.4 mg/dL (8.6-10.3); EGFR African American 88.5 (>60); EGFR Non-African American 73.2 (>60); Potassium 4.9 mmol/L (3.5-5.0)
[2020-07-26] MEDS: Cholecalciferol (VIT D3) 1,000 unit TAB PO SCH (08:51)
[2020-07-26] MEDS: Senna TAB 8.6 mg TAB PO SCH ×2 (08:52→22:24)
[2020-07-26] MEDS: Venlafaxine XR 75 mg PO SCH (08:53)
[2020-07-26] MEDS: Nicotine PATCH 14 MG/24 HR PATCH TRANSDERM SCH (09:12)
[2020-07-26] MEDS: Magnesium CITRATE LIQ 300 ML BTL PO SCH (09:12)
[2020-07-26] MEDS: Lidocaine PATCH 5% PATCH TRANSDERM SCH (09:12)
[2020-07-26] MEDS: Polyethylene Glycol 3350 17 GM PACKET PO SCH ×2 (09:13→22:26)
[2020-07-26] MEDS: Ondansetron ODT 4 mg TAB 4 MG TAB PO PRN (10:23)
[2020-07-26] MEDS ORDERED: Lorazepam PYXIS KEY PRN (10:27)
[2020-07-26] MEDS ORDERED: LORazepam 2 mg VIAL 1 ml IV PUSH ONE (13:00)
[2020-07-27] MEDS: Lidocaine Patch REMOVE PATCH PATCH OFF SCH (00:10)
[2020-07-27 06:02] LABS: Hematocrit 30 % (35-47); Mean Corpuscular HGB Conc 34 g/dL (31-36); Mean Corpuscular Hemoglobin 33 pg (27-31); Mean Corpuscular Volume 98 fL (80-97); Mean Platelet Volume 8.5 fL (7.4-10.4); Platelet Count 250 10^3/uL (150-450); Red Blood Count 3.03 10^6 /uL (3.70-4.87); Red Cell Distribution Width 12 % (10-15); White Blood Count 7.5 10^3/uL (3.5-10.8)
[2020-07-27 06:19] LABS: BUN/Creatinine Ratio 52.1 (8-20); Calcium 8.5 mg/dL (8.6-10.3); EGFR African American 159.6 (>60); EGFR Non-African American 131.9 (>60); Potassium 3.8 mmol/L (3.5-5.0)
[2020-07-27] MEDS: Lidocaine PATCH 5% PATCH TRANSDERM SCH (10:35)
[2020-07-27] MEDS: Nicotine PATCH 14 MG/24 HR PATCH TRANSDERM SCH (10:35)
[2020-07-27] MEDS: Cholecalciferol (VIT D3) 1,000 unit TAB PO SCH (10:42)
[2020-07-27] MEDS: Venlafaxine XR 75 mg PO SCH (10:45)
[2020-07-27] MEDS: Senna TAB 8.6 mg TAB PO SCH (10:57)
[2020-07-27] MEDS: Polyethylene Glycol 3350 17 GM PACKET PO SCH (10:57)
[2020-07-27] MEDS: Magnesium CITRATE LIQ 300 ML BTL PO SCH (10:57)
[2020-07-27 12:42] LABS: Hematocrit 30 % (35-47); Hemoglobin 10.3 g/dL (12.0-16.0)
[2020-07-27 13:56] VITALS: BP 108/53
== END 2020-07-27 15:05 | disposition home or self-care (01) | DRG 194 ==
LOC: ED 17:40 → MEDTELE 22:31
PROVIDERS: ADMIT Internal Medicine; ATTEND Internal Medicine